=== PATIENT | male | born 2005 | race Two or more races ===

== ENCOUNTER 2023-12-05 21:20 | Emergency (ER) | payer MEDICAID, OTHER ==
[~2023-12-05] VITALS: Ht 185.4 cm; Wt 130.3 kg
[2023-12-05 21:40] VITALS: BP 126/65; PULSE 82; RESP 12; TEMP 97.8; O2SAT 98
[2023-12-06] MEDS: TETANUS-DIPTH-ACEL PERTUSSIS 0.5ML SYR Tdap IM ONE (00:26)
== END 2023-12-06 00:31 | disposition home or self-care (01) ==
LOC: ER 21:20
DX: S61.211A Laceration without foreign body of left index finger without damage to nail, initial encounter (principal); F84.0 Autistic disorder; W26.0XXA Contact with knife, initial encounter; Y93.89 Activity, other specified; Y92.89 Other specified places as the place of occurrence of the external cause; Y99.8 Other external cause status
CPT/HCPCS: 12001; 90471; 90715; 96372